=== PATIENT | male | born 1960 | race Caucasian/White ===

== ENCOUNTER → 2017-07-22 11:43 | Outpatient (CLI) | payer OTHER ==
[~2017-07-22 11:43] MED LIST: CELLCEPT250 MG PO; MESTINON60 MG PO
== END | disposition home or self-care (01) ==
LOC: PPHC 06-03 13:00 → NUTRICION 11:43
DX: E11.9 Type 2 diabetes mellitus without complications (principal); G70.00 Myasthenia gravis without (acute) exacerbation; E66.3 Overweight

== ENCOUNTER 2019-08-23 15:40 | Inpatient (IN) | payer OTHER ==
[~2019-08-23] VITALS: Ht 180.3 cm; Wt 81.6 kg
[2019-08-23] MEDS ORDERED: FAMCICLOVIR PO (16:10)
--- NOTE | 2019-08-23 16:10 | NUR ---
PACIENTE ALERTA Y ORIENTADO EN BALJIT GONZALO ESFERAS, REFIERE DOLOR E INFLAMACION DESDE EL DENNIS HASTA BRAZO LT HACE APROX SULLY SEMANA LUEGO DE RECIBIR TERAPIA DE GAMMAGLOBULINA. PACIENTE MUMTAZ REFERIDO MEDICO DE DR Collette MALDONADO.
--- NOTE | 2019-08-23 18:38 | NUR ---
EVALUA PTE. SE ORIENTA A PTE SOBRE TX MEDICO. PTE REFIERE COMPRENDER. SE REALIZAN MUESTRAS DE LABORATORIO BAJO MEDIDAS ASEPTICAS. SE NOTIFICA CT. PROCEDIMIENTOS LLEVADOS A CABO POR .
--- NOTE | 2019-08-24 02:21 | NUR ---
SE RECIBE PACIENTE ALERTA Y ORIENTADO X3 EN CAMA CON BARANDAS ELEVADAS Y CABECERA A 30 GRADOS. AREA DE VENOPUNCION PATENTE Y MARGARITA DE EDEMA BAJANDO MEDICAMENTOS ORDENADOS. PACIENTE ESTABLE SE MANTIENE BAJO OBSERVACION.
--- NOTE | 2019-08-24 08:03 | NUR ---
SE RECIBE PTE MASCULINO DE 59 YRS ALERTA CONCIENTE Y TRANQUILO EN CAMA CON BARANDAS ELEVADA. PTE CON .9NSS A 120 ML HR SE MANTIENE EN ESPERA DE MEDICO CONSULTOR KODAK MALDONADO LA CUAL SE MANTIENE NOTIFICADO. PTE AL MOMENTO MARGARITA DE DOLOR, SE LE DA SEGUIMIENTO A LA CONSULTA. SE MANTIENE BAJO OBSERVACION.
== END 2019-08-26 17:35 | disposition home or self-care (01) | DRG 299 ==
LOC: ER 15:40 → MEDI 08-24 15:00
PROVIDERS: ADMIT Specialist
PROC: B246ZZZ Ultrasonography of Right and Left Heart (ICD-10-PCS; 2019-08-24)
PROC: B54CZZZ Ultrasonography of Left Lower Extremity Veins (ICD-10-PCS; principal; 2019-08-25)
DX: I82.210 Acute embolism and thrombosis of superior vena cava (principal); I50.31 Acute diastolic (congestive) heart failure; I82.622 Acute embolism and thrombosis of deep veins of left upper extremity; G70.00 Myasthenia gravis without (acute) exacerbation; I87.2 Venous insufficiency (chronic) (peripheral); I11.0 Hypertensive heart disease with heart failure; I08.2 Rheumatic disorders of both aortic and tricuspid valves; Z79.01 Long term (current) use of anticoagulants

== ENCOUNTER → 2019-11-30 | Outpatient (CLI) | payer OTHER ==
[~2019-11-30] MED LIST changes: +FAMCICLOVIR PO
== END | disposition home or self-care (01) ==
LOC: NUCLEAR 12:59
PROVIDERS: ATTEND Internal Medicine Hematology & Oncology
DX: I82.622 Acute embolism and thrombosis of deep veins of left upper extremity (principal)

== ENCOUNTER 2020-06-20 12:09 | Outpatient (CLI) | payer OTHER | END 2020-06-20 12:16 | disposition home or self-care (01) | LOC: SONOGRAMA 12:09 | PROVIDERS: ATTEND Specialist | DX: K80.80 Other cholelithiasis without obstruction (principal); K76.0 Fatty (change of) liver, not elsewhere classified ==

== ENCOUNTER → 2020-06-20 | Outpatient (CLI) | payer OTHER | END | disposition home or self-care (01) | LOC: LAB 13:49 | PROVIDERS: ATTEND Specialist | DX: B16.1 Acute hepatitis B with delta-agent without hepatic coma (principal); B17.10 Acute hepatitis C without hepatic coma ==

== ENCOUNTER 2020-07-24 11:30 | Emergency (ER) | payer OTHER ==
[~2020-07-24] VITALS: Ht 177.8 cm; Wt 81.6 kg
[2020-07-24] MEDS ORDERED: KETO10TA2 PO (12:42)
== END 2020-07-24 12:50 | disposition home or self-care (01) ==
LOC: ER 11:30
DX: M54.5 Low back pain (principal)

== ENCOUNTER 2021-03-13 14:00 | Outpatient (CLI) | payer OTHER ==
[~2021-03-13 14:00] MED LIST changes: +KETO10TA2 PO
== END 2021-03-13 14:09 | disposition home or self-care (01) ==
LOC: SONOGRAMA 14:00
PROVIDERS: ATTEND Specialist
DX: Q61.01 Congenital single renal cyst (principal); N20.0 Calculus of kidney

== ENCOUNTER 2021-04-04 16:37 | Emergency (ER) | payer OTHER ==
[~2021-04-04] VITALS: Ht 177.8 cm; Wt 84.8 kg
[2021-04-04] MEDS ORDERED: IBU800 MG PO (22:14)
== END 2021-04-04 22:36 | disposition home or self-care (01) ==
LOC: ER 16:37
DX: S00.81XA Abrasion of other part of head, initial encounter (principal); S80.212A Abrasion, left knee, initial encounter; S80.211A Abrasion, right knee, initial encounter; W18.09XA Striking against other object with subsequent fall, initial encounter; Y93.89 Activity, other specified; Y92.488 Other paved roadways as the place of occurrence of the external cause; Y99.8 Other external cause status

== ENCOUNTER 2021-04-30 14:12 | Outpatient (CLI) | payer OTHER ==
[~2021-04-30 14:12] MED LIST changes: +IBU800 MG PO
== END 2021-04-30 14:58 | disposition home or self-care (01) ==
LOC: MRI 14:12
PROVIDERS: ATTEND Psychiatry & Neurology Clinical Neurophysiology
DX: M25.562 Pain in left knee (principal); M25.561 Pain in right knee; G11.2 Late-onset cerebellar ataxia; G93.89 Other specified disorders of brain
CPT/HCPCS: 70551

== ENCOUNTER 2021-09-05 20:03 | Emergency (ER) | payer OTHER ==
[~2021-09-05] VITALS: Ht 177.8 cm; Wt 83.9 kg
[2021-09-05] MEDS ORDERED: MESTINON180 MG (20:17)
[2021-09-05] MEDS ORDERED: CELLCEPT500 MG (20:18)
== END 2021-09-05 23:56 | disposition home or self-care (01) ==
LOC: ER 20:03
DX: G70.00 Myasthenia gravis without (acute) exacerbation (principal); R00.2 Palpitations

== ENCOUNTER 2021-09-06 10:38 | Outpatient (CLI) | payer OTHER ==
[~2021-09-06 10:38] MED LIST changes: +CELLCEPT500 MG; +MESTINON180 MG
== END 2021-09-06 10:39 | disposition home or self-care (01) ==
LOC: NUCLEAR 10:38
PROVIDERS: ATTEND Psychiatry & Neurology Clinical Neurophysiology
DX: G70.00 Myasthenia gravis without (acute) exacerbation (principal)

== ENCOUNTER 2022-01-25 11:47 | Outpatient (CLI) | payer OTHER | END 2022-01-25 11:48 | disposition home or self-care (01) | LOC: RAD 11:47 | PROVIDERS: ATTEND Specialist | DX: M13.849 Other specified arthritis, unspecified hand (principal); M06.049 Rheumatoid arthritis without rheumatoid factor, unspecified hand ==

== ENCOUNTER → 2024-02-04 | Outpatient (CLI) | payer OTHER | END | disposition home or self-care (01) | LOC: NUCLEAR 09:07 | PROVIDERS: ATTEND Internal Medicine Gastroenterology | DX: K81.1 Chronic cholecystitis (principal) | CPT/HCPCS: 78227; A9537 ==

== ENCOUNTER 2024-08-06 11:13 | Emergency (ER) | payer OTHER ==
[~2024-08-06] VITALS: Ht 172.7 cm; Wt 81.6 kg
[2024-08-06 13:40] LABS: HEMATOCRIT 47.4 % (39.0-48.0); HEMOGLOBIN 15.6 g/dL (13-16.00); MEAN CELL VOLUME 93.7 fL (80.0-100.00); MEAN CORPUSCULAR HEMOGLOBIN 30.8 pg (27.00-32.0); MEAN CORPUSCULAR HGB CONC 32.8 g/dl (32.0-36.0); PLATELET COUNT 218 K/uL (150-450); RED BLOOD COUNT 5.05 M/uL (4.00-6.00); RED CELL DISTRIBUTION WIDTH 13.2 % (11.5-14.5)
[2024-08-06 14:27] LABS: URINE APPEARANCE Clear; URINE BILIRRUBIN Negative (NEGATIVE); URINE BLOOD Negative; URINE COLOR Yellow; URINE GLUCOSE Negative (NEGATIVE); URINE KETONE Negative (NEGATIVE); URINE LEUKOCYTE Negative; URINE NITRATE Negative; URINE PROTEIN Negative (NEGATIVE); URINE UROBILINOGEN 0.2 E.U./dl
[2024-08-06 14:28] LABS: URINE EPITHELIAL CELLS 1.7 uL (0.0-38.8); URINE RBC 9.2 uL (0.0-20.8); URINE WBC 5.8 uL (0.0-23.2)
[2024-08-06 14:29] LABS: ALBUMIN 4.1 gm/dL (3.4-5.0); BILIRUBIN TOTAL 0.55 mg/dL (0.3-1.2); CALCIUM 9.4 mg/dL (8.5-10.1); CREATININE SERUM 0.87 mg/dL (0.70-1.30); GFR 88.63; GLOBULINA 4.5 G/DL (2.4-3.5); POTASSIUM 4.6 mEq/L (3.5-5.1); TOTAL PROTEIN 8.6 gm/dL (6.4-8.2)
[2024-08-06 14:43] LABS: URINE BACTERIA 2.4 uL (0.0-1933); URINE CAST 0.14 uL (0.0-1.40)
[2024-08-06] MEDS ORDERED: NAPROXEN 500 MG TABLET PO ONE (15:30)
== END 2024-08-06 15:43 | disposition home or self-care (01) ==
LOC: ER
PROVIDERS: General Practice
DX: R53.81 Other malaise (principal); R55 Syncope and collapse; E11.9 Type 2 diabetes mellitus without complications; Z88.8 Allergy status to other drugs, medicaments and biological substances